=== PATIENT | male | born 1945 | race Caucasian/White ===

== ENCOUNTER 2017-06-18 15:29 | Inpatient (IN) | payer MEDICARE, BC ==
[~2017-06-18 15:29] MED LIST: ISOVUE-370 76%-LOCM 1 ML ONE
[2017-06-18] MEDS ORDERED: Ondansetron HCl/PF 4 MG/2 ML Vial ONE (16:17)
[2017-06-18] MEDS ORDERED: Morphine 4 MG/ML Carpuject ONE (16:17)
[2017-06-18 16:53] LABS: Clarity Cloudy (Clear)
[2017-06-18 17:07] LABS: RBC/HPF GREATER THAN 50-TNTC HPF (0-3)
[2017-06-18 17:08] LABS: Leukocyte Unable to Interpret (Negative); Nitrite Unable to Interpret (Negative); Specific Gravity, Urine 1.031 (1.002-1.036); pH, Urine 5.5 (5.0-9.0)
[2017-06-18 17:09] LABS: Bilirubin Unable to Interpret (Negative); Blood, Urine Unable to Interpret (Negative); Glucose, Urine (Dipstick) Unable to Interpret mg/dL (Negative); Protein, Urine (Dipstick) > or equal to 300 mg/dL (Neg-Trace); Urobilinogen UNABLE TO INTERPRET mg/dL (0.2-1.0)
[2017-06-18 17:10] LABS: Squamous Epithelial 0-3 HPF (0-3)
[2017-06-18 17:12] LABS: Bacteria/HPF Rare-Few HPF (None Seen); Hyaline Casts/LPF 0-3 HYALINE CAST LPF (0-3 Hyaline)
[2017-06-18 17:14] LABS: #Monocytes 0.9 thou/uL (0.11-0.59); #Neutrophils 13.7 thou/uL (1.40-6.50); %Basophils 0.3 % (0.0-1.0); %Eosinophils 0.3 % (0.0-10.0); %Lymphocytes 6.2 % (21.0-51.0); %Monocytes 5.8 % (0.0-10.0); %Neutrophils 87.5 % (42.0-75.0); Hemoglobin 12.8 g/dL (14.0-18.0); Mean Corpuscular Hemoglobin 30.4 pg (27.0-31.0); Mean Platelet Volume 9.9 fL (7.4-10.4); Platelet Count 159 thou/uL (130-400); RBC Distribution Width 12.6 % (11.5-14.5); Red Blood Cell (RBC) Count 4.23 mill/uL (4.70-6.10); White Blood Cell (WBC) Count 15.6 thou/uL (4.8-10.8)
[2017-06-18 17:26] LABS: INR-International Normal Ratio 1.1; PTT 23.5 SEC (22.9-36.1); Prothrombin Time 13.9 SEC (12.0-14.7)
[2017-06-18] MEDS ORDERED: Ondansetron ODT 4 MG TAB PO PRN (17:31)
[2017-06-18] MEDS ORDERED: Dextrose 50% Abboject 50 ML SYRINGE SLOW IVP PRN (17:31)
[2017-06-18] MEDS ORDERED: Dextrose 5% in Water 1,000 ML IV PRN (17:31)
--- NOTE | 2017-06-18 17:37 | CT ---
CT HEAD NONCONTRAST: 06/18/17 HISTORY: Fall. Head injury. FINDINGS: No comparison. There is no evidence of acute intracranial hemorrhage or infarct. The ventricles appear normal in siz e, shape, and position. There is no mass effect or shift of midline structures. The visualized paran amanda sinuses remain well aerated. IMPRESSION: No acute intracranial abnormalities are demonstrated. POS: [facility]
[2017-06-18 17:38] LABS: ALT (SGPT) 57 U/L (8-55); AST (SGOT) 54 U/L (5-34); Albumin 4.1 g/dL (3.4-4.8); Alkaline Phosphatase 55 U/L (40-150); Anion Gap 16 mmol/L (10-20); BUN (Urea Nitrogen) 24 mg/dL (8.4-25.7); Bilirubin, Total 0.5 mg/dL (0.2-1.2); Calc. Creatinine Clearance 0 mL/min (70-130); Calcium 9.3 mg/dL (7.8-10.44); Carbon Dioxide 23 mmol/L (23-31); Chloride 103 mmol/L (98-107); Estimated GFR-MDRD 57; Globulin 2.5 g/dL (2.4-3.5); Glucose 171 mg/dL (83-110); Potassium 4.4 mmol/L (3.5-5.1); Protein, Total 6.6 g/dL (5.8-8.1); Sodium 138 mmol/L (136-145)
--- NOTE | 2017-06-18 17:44 | CT ---
CT CERVICAL SPINE NONCONTRAST 06/18/17 HISTORY: Fall. Neck injury. FINDINGS: Prominent osteophytosis is present throughout the vertebral bodies and facets. Disc space narrowing i s most pronounced at the C5-6 level. No acute fracture or dislocation of the cervical spine is visibl e. The inferior most images show fracture of the right first rib with adjacent gas and minimal right api sonja pneumothorax. IMPRESSION: 1. Degenerative changes of the cervical spine without acute osseous abnormalities demonstrated. 2. Traumatic changes of the right upper chest are partially visualized and better detailed on de dicated CT chest. POS: [facility]
[2017-06-18] MEDS ORDERED: Rib Fracture Protocol PO SCH (17:45)
--- NOTE | 2017-06-18 17:50 | CT ---
CT CHEST WITH IV CONTRAST CT ABDOMEN AND PELVIS WITH IV CONTRAST CT THORACIC SPINE NONCONTRAST CT LUMBAR SPINE NONCONTRAST 06/18/17 HISTORY: Fall. Chest injury. Abdomen injury, back injury. FINDINGS: A small amount of soft tissue gas lies adjacent to nondisplaced fractures of the right first and thir d ribs. Nondisplaced fractures also involve the right fourth, fifth, sixth, seventh and ninth ribs. T here is minimal pleural gas and a small amount of right pleural fluid. Nondisplaced oblique fracture is predominantly axially oriented through the right scapula, extending into the right glenoid without distraction. The liver, spleen, kidneys, adrenal glands, and pancreas are within normal limits. The urinary bladde r is incompletely distended. Calcifications apparent within the arterial structures. Vertebral body heights and alignment of the thoracolumbar spine are intact. Prominent osteophytosis i s present. No acute fracture or dislocation. IMPRESSION: 1. Multiple right rib fractures with right chest wall gas. Small right hemopneumothorax. 2. Atherosclerosis. 3. Right scapular fracture extending into the right glenoid. Findings were called to Dr. Sequeira in the Emergency Department at 1642 hours. Code CR POS: [facility]
[2017-06-18] MEDS ORDERED: Cyclobenzaprine 10 MG TAB PO PRN (18:15)
--- NOTE | 2017-06-18 18:50 | RAD ---
RIGHT SHOULDER RADIOGRAPHS THREE VIEWS 06/18/17 PROVIDED CLINICAL HISTORY: Right shoulder pain status post injury. FINDINGS: There is a nondisplaced fracture involving the right scapular glenoid which appears to involve the ar ticular surface of the anterior aspect of the glenoid superiorly. This is better seen on concurrently performed chest CT. The glenohumeral relationship appears normal. No additional fracture is evident. Soft tissue gas parallels the right chest wall, please see concurrently [facility] finding. IMPRESSION: 1. Nondisplaced intra-articular scapular glenoid fracture. 2. Soft tissue gas within the right chest wall. Please see concurrently dictated chest CT report . POS: [facility]
--- NOTE | 2017-06-18 18:52 | RAD ---
LEFT KNEE RADIOGRAPHS FOUR VIEWS: 06/18/17 PROVIDED CLINICAL HISTORY: Left knee pain status post injury. FINDINGS: There is no evidence for fracture or other acute osseous abnormality. Alignment appears anatomic. Franci nt spaces appear preserved. Knee joint capsular distention is suspected on the basis of the lateral v iew which may reflect effusion. Surgical clips are seen within the soft tissues of the medial left kn ee. IMPRESSION: 1. No evidence for an acute osseous abnormality. If there is persistent clinical concern, conser vative management and followup imaging are advised. 2. Knee joint capsular distention which may reflect effusion. If there is concern for internal d erangement, consider nonemergent MRI. POS: [facility]
[2017-06-18] MEDS: Carvedilol 6.25 MG TAB PO SCH (20:25)
[2017-06-18] MEDS: Gabapentin 100 MG CAP PO SCH (20:26)
[2017-06-18] MEDS: Insulin Regular 300 UNITS/3 ML VIAL SC PRN (20:27)
[2017-06-18] MEDS ORDERED: Zolpidem Tartrate 5 MG TAB PO SCH (21:00)
[2017-06-18] MEDS ORDERED: Rosuvastatin 20 MG TAB PO SCH (21:00)
[2017-06-18] MEDS ORDERED: Non-Formulary Item 1 EACH (Insulin Glargine,Hum.Rec.Anlog 40 UNIT) SQ SCH (21:00)
[2017-06-18] MEDS ORDERED: Insulin Detemir 100 UNITS/ML 40 UNITS in Pre-Filled Syringe 1 EACH SC SCH (21:00)
--- NOTE | 2017-06-18 23:29 | HP ---
DATE OF ADMISSION: 06/18/2017 REQUESTING PHYSICIAN: Dr. Sequeira, ED. ADMITTING PHYSICIAN: Dr. Oscar Rogers. CONSULTING PHYSICIAN: Dr. Stan Argueta, Orthopedics. HISTORY OF PRESENT ILLNESS: The patient is a 71-year-old male who was standing on a stack of hay when he fell off approximately 8 feet, landing on his right shoulder and right side. 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 He then was concerned because he noticed that he had hematuria and that prompted him to seek treatment in the ED. He remained hemodynamically stable and neurologically intact during evaluation. Workup identified multiple right- sided rib fractures and slight pneumothorax as well as right scapular fracture. Trauma Services was consulted for admission and management. Dr. Argueta has been consulted for scapular fracture. The patient describes the pain as in the right chest wall. Pain is exacerbated by deep inspiration. Pain was relieved with administration of morphine. PAST MEDICAL HISTORY: Cardiac disease, hypothyroidism, hyperlipidemia, hypertension. PAST SURGICAL HISTORY: Coronary artery bypass graft x4 in 2009, coronary artery stent x2 in 2009, bilateral quadriceps repair, orthopedic surgeries. SOCIAL HISTORY: Denies tobacco use, drug use, alcohol use. ALLERGIES: No known drug allergies. REVIEW OF SYSTEMS: Constitutional: Denies weight loss, fatigue or generalized weakness. HEENT: No complaints. No vision changes, no hearing changes. Cardiovascular: Right chest wall pain with deep inspiration or movement. No palpitations. Respiratory: No shortness of breath. No cough. Gastrointestinal: No abdominal pain, no nausea, no vomiting, no diarrhea. Genitourinary: The patient reports hematuria. Musculoskeletal: Right shoulder pain, left knee pain. Skin: No complaints. Neurologic: No focal weakness, no loss of consciousness, no seizure activity. PHYSICAL EXAMINATION: VITAL SIGNS: Blood pressure 131/68, pulse 57, respirations 18, temperature 97.9 , O2 sat 96% on room air. CONSTITUTIONAL: Well-developed, well-nourished male, in no acute distress. HEENT: Atraumatic, normocephalic. RESPIRATIONS: Obvious pain with deep inspiration. No respiratory distress. Bilateral breath sounds. Clear to auscultation. CARDIOVASCULAR: Regular rate and rhythm. Heart sounds normal. ABDOMEN: Soft, nontender, nondistended. EXTREMITIES: Moves all extremities well. Cap refill brisk. Neurovascularly intact. BACK: No cervical spine, thoracic spine or lumbar spine tenderness. NEUROLOGIC: GCS 15. Awake, alert, and oriented x3. SKIN: Warm and dry. No rashes, no trauma noted. LABORATORY DATA: CBC: WBC 15.6, RBC 4.23, hemoglobin 12.8, hematocrit 38.9, platelets 159. Chemistry: Sodium 138, potassium 4.4, chloride 103, carbon dioxide 23, BUN 24, creatinine 1.24. DIAGNOSTIC IMAGING: Right rib fractures 1, 3, 4, 5, 6, 7, 9. Right scapular fracture into the glenoid. A small right hemopneumothorax. ASSESSMENT: 1. A 71-year-old male status post fall from height of about 8 feet. 2. Multiple right rib fractures. 3. Right scapular fracture. 4. Small right hemopneumothorax. 5. Acute traumatic pain. 6. Hematuria. PLAN: 1. Admit to surgical floor. 2. Oral scheduled analgesia. 3. Orthopedic consult, Dr. Argueta. 4. A sling for right arm. 5. Aggressive pulmonary toilet and incentive spirometry. 6. Chest x-ray in a.m. 7. Monitor H&H. 8. PT, OT evaluation. The patient was seen and examined with Dr. Rogers, who agrees with the assessment and plan. [facility]
[2017-06-18] MEDS: Acetaminophen 500 MG TAB PO SCH (23:38)
[2017-06-18] MEDS: Ibuprofen 600 MG TAB PO SCH (23:38)
[2017-06-18] MEDS: traMADol HCl 50 MG TAB PO SCH (23:38)
[2017-06-19 04:35] LABS: Anion Gap 11 mmol/L (10-20); BUN (Urea Nitrogen) 24 mg/dL (8.4-25.7); Calc. Creatinine Clearance 111 mL/min (70-130); Calcium 8.9 mg/dL (7.8-10.44); Carbon Dioxide 26 mmol/L (23-31); Chloride 102 mmol/L (98-107); Estimated GFR-MDRD 75; Glucose 224 mg/dL (83-110); Sodium 135 mmol/L (136-145)
[2017-06-19] MEDS ORDERED: Levothyroxine Sodium 75 MCG TAB PO SCH (06:00)
[2017-06-19] MEDS: traMADol HCl 50 MG TAB PO SCH ×2 (06:35→11:58)
[2017-06-19] MEDS: Ibuprofen 600 MG TAB PO SCH ×2 (06:36→11:58)
[2017-06-19] MEDS: Acetaminophen 500 MG TAB PO SCH ×2 (06:37→11:58)
[2017-06-19] MEDS: Insulin Regular 300 UNITS/3 ML VIAL SC PRN ×2 (06:49→11:57)
[2017-06-19] MEDS: Gabapentin 100 MG CAP PO SCH ×2 (07:48→16:18)
[2017-06-19] MEDS: Carvedilol 6.25 MG TAB PO SCH (07:49)
--- NOTE | 2017-06-19 08:23 | RAD ---
UPRIGHT PORTABLE CHEST 1 VIEW: HISTORY: A 71-year-old male followup right-sided pneumothorax in a trauma patient. COMPARISON: 06/18/17. FINDINGS: There is a small amount of persistent but overall improving right-sided subcutaneous emphysema. Prob able tiny residual right apical pneumothorax. Postop midline sternotomy. Mild cardiomegaly. Left c hest is stable. IMPRESSION: Probable very tiny right apical pneumothorax. Some persistent but improving right subcutaneous emphy sema. Mild cardiomegaly. Overall stable left chest. No new process. POS: [facility]
[2017-06-19] MEDS ORDERED: NIFEdipine XL 90 MG TAB PO SCH (09:00)
[2017-06-19] MEDS ORDERED: Polyethylene Glycol 3350 17 GM Packet PO SCH (09:00)
[2017-06-19] MEDS ORDERED: Multivitamin W/ Minerals 1 TAB PO SCH (09:00)
[2017-06-19] MEDS ORDERED: Lisinopril 20 MG TAB PO SCH (09:00)
[2017-06-19 15:42] VITALS: BP 106/58; TEMP 98
--- NOTE | 2017-06-20 00:59 | DIS ---
DATE OF ADMISSION: 06/18/2017 DATE OF DISCHARGE: 06/19/2017 ADMITTING PHYSICIAN: Oscar Rogers DO DISCHARGING PHYSICIAN: Oscar Rogers DO REASON FOR HOSPITALIZATION: Fall from a height with right rib pain. HOSPITAL DIAGNOSES: 1. Multiple right rib fractures. 2. Small right hemopneumothorax. 3. Right scapular fracture. PROCEDURES: None. CONDITION ON DISCHARGE: Good. Discharged to home. BRIEF HISTORY OF HOSPITALIZATION: The patient is a 71-year-old male who was loading some hay when he fell from the top of the stack of hay landing on his right side. 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 He noticed that he was having some hematuria which prompted him to seek treatment in the ER. Workup in the ER identified multiple injuries as listed above. He remained hemodynamically stable and neurovascular intact during evaluation. He was evaluated in the ER by Dr. Rogers and admitted to the hospital. Strict pulmonary toilet and incentive spirometer were instructed. On hospital day #1, the patient was mobilizing around the surgical floor without assistance. He was compliant with his incentive spirometry and had volumes up to 2200 mL. Repeat chest x-ray showed a probable very tiny right apical pneumothorax. His pain was well controlled. Dr. Argueta was consulted for scapular fracture and recommended the patient be placed in a sling with nonoperative treatment. The patient did not work with physical therapy as he had no issues with mobility. He was tolerating a regular diet. The patient is to be discharged to home. He is to follow up with Dr. Rogers with repeat chest x-ray in 2 weeks. He is also to follow up with Dr. Argueta. The patient and were given discharge instructions, followup information, and strict return precautions. The patient was seen and examined with Dr. Rogers who agrees with the assessment and plan for discharge. [facility]
== END 2017-06-19 16:28 | disposition home or self-care (01) | DRG 183 ==
LOC: ERS 15:29 → SURG A 18:48
PROVIDERS: ADMIT Surgery; ATTEND Surgery
DX: S22.41XA Multiple fractures of ribs, right side, initial encounter for closed fracture (principal); S27.2XXA Traumatic hemopneumothorax, initial encounter; R31.9 Hematuria, unspecified; E03.9 Hypothyroidism, unspecified; S42.141A Displaced fracture of glenoid cavity of scapula, right shoulder, initial encounter for closed fracture; E78.5 Hyperlipidemia, unspecified; Z95.1 Presence of aortocoronary bypass graft; Z95.5 Presence of coronary angioplasty implant and graft; W17.89XA Other fall from one level to another, initial encounter
CPT/HCPCS: 36415; 36416; 70450; 71045; 71260; 72125; 74177; 80048; 80053; 81003; 81015; 85025; 85610; 85730; 94640; J1815; J2270; J2405; J7620

== ENCOUNTER 2017-07-02 09:52 | Outpatient (CLI) | payer MEDICARE, BC ==
--- NOTE | 2017-07-02 11:04 | RAD ---
CHEST PA AND LATERAL: Date: 07/02/17 HISTORY: 71-year-old male with history of multiple right rib fractures and follow-up pneumothorax. COMPARISON: 06/19/17. FINDINGS: No evidence for residual right-sided pneumothorax. There is some progressive pleural effusion/pleural thickening changes in the right chest and right costophrenic angle and right lung base since the cindy or study. The left chest is stable. Heart size is normal. IMPRESSION: No evidence for residual pneumothorax. Some progressive pleural changes in the right base. POS: [facility]
== END 2017-07-02 09:53 | disposition home or self-care (01) ==
LOC: RAD 09:52
PROVIDERS: ATTEND Physician Assistant
DX: S22.41XD Multiple fractures of ribs, right side, subsequent encounter for fracture with routine healing (principal); J94.2 Hemothorax
CPT/HCPCS: 71046

== ENCOUNTER 2019-05-10 00:22 | Inpatient (IN) | payer MEDICARE, BC ==
[2019-05-10] MEDS ORDERED: Clindamycin/D5W 600 mg/50 ml Premix Bag ONE (01:09)
[2019-05-10 01:43] LABS: #Basophils 0.1 thou/uL (0.0-0.2); #Eosinphils 0.4 thou/uL (0.0-0.7); #Monocytes 0.7 thou/uL (0.11-0.59); #Neutrophils 5.9 thou/uL (1.40-6.50); %Basophils 0.9 % (0.0-1.0); %Lymphocytes 22.5 % (21.0-51.0); %Monocytes 7.2 % (0.0-10.0); %Neutrophils 65.4 % (42.0-75.0); Hemoglobin 13.3 g/dL (14.0-18.0); Mean Corpuscular HGB CONC 33.2 g/dL (32.0-36.0); Mean Corpuscular Hemoglobin 30.9 pg (27.0-31.0); Mean Corpuscular Volume 93.2 fL (78.0-98.0); Mean Platelet Volume 10.8 fL (7.4-10.4); Platelet Count 154 thou/uL (130-400); RBC Distribution Width 11.8 % (11.5-14.5); Red Blood Cell (RBC) Count 4.29 mill/uL (4.70-6.10)
[2019-05-10 02:02] LABS: ALT (SGPT) 18 U/L (8-55); AST (SGOT) 15 U/L (5-34); Albumin 4.3 g/dL (3.4-4.8); Alkaline Phosphatase 72 U/L (40-110); Anion Gap 14 mmol/L (10-20); BUN (Urea Nitrogen) 20 mg/dL (8.4-25.7); Bilirubin, Total 0.7 mg/dL (0.2-1.2); Calc. Creatinine Clearance 0 mL/min (70-130); Calcium 9.6 mg/dL (7.8-10.44); Carbon Dioxide 28 mmol/L (23-31); Chloride 103 mmol/L (98-107); Estimated GFR-MDRD 74; Globulin 2.9 g/dL (2.4-3.5); Glucose 109 mg/dL (83-110); Potassium 4.4 mmol/L (3.5-5.1); Protein, Total 7.2 g/dL (5.8-8.1); Sodium 141 mmol/L (136-145)
[2019-05-10] MEDS ORDERED: Dextrose 5% in Water 1,000 ML IV PRN (03:21)
[2019-05-10] MEDS ORDERED: Senokot S 8.6-50 MG TAB PO PRN (03:21)
[2019-05-10] MEDS ORDERED: Ondansetron PF 4 MG/2 ML Vial IVP PRN (03:21)
[2019-05-10] MEDS ORDERED: Bisacodyl 5 MG TAB PO PRN (03:21)
[2019-05-10] MEDS ORDERED: HumaLOG 300 UNITS/3 ML VIAL SC PRN (03:21)
[2019-05-10] MEDS ORDERED: Dextrose 50% Abboject 50 ML SYRINGE SLOW IVP PRN (03:21)
[2019-05-10] MEDS ORDERED: Acetaminophen 325 MG TAB PO PRN (03:21)
[2019-05-10] MEDS ORDERED: HYDROcodone/Acetaminophen 5/325 mg Tablet PO PRN (03:21)
[2019-05-10] MEDS ORDERED: Morphine 2 MG/ML SYRINGE SLOW IVP PRN (03:27)
[2019-05-10] MEDS ORDERED: hydrALAZINE 20 MG/ML VIAL SLOW IVP PRN (03:27)
[2019-05-10] MEDS ORDERED: Vancomycin HCl 1 GM in Premix Bag 1 BAG IVPB SCH (03:30)
[2019-05-10 03:50] VITALS: BMI 30.2
[2019-05-10 04:03] LABS: #Basophils 0.1 thou/uL (0.0-0.2); #Eosinphils 0.5 thou/uL (0.0-0.7); #Lymphocytes 2.4 thou/uL (1.20-3.40); #Monocytes 0.7 thou/uL (0.11-0.59); #Neutrophils 5.8 thou/uL (1.40-6.50); %Basophils 0.7 % (0.0-1.0); %Eosinophils 4.9 % (0.0-10.0); %Lymphocytes 25.2 % (21.0-51.0); %Monocytes 7.2 % (0.0-10.0); Hemoglobin 13.5 g/dL (14.0-18.0); Mean Corpuscular HGB CONC 33.5 g/dL (32.0-36.0); Mean Corpuscular Hemoglobin 31.2 pg (27.0-31.0); Mean Corpuscular Volume 93.1 fL (78.0-98.0); Mean Platelet Volume 10.5 fL (7.4-10.4); Platelet Count 164 thou/uL (130-400); RBC Distribution Width 11.8 % (11.5-14.5); Red Blood Cell (RBC) Count 4.33 mill/uL (4.70-6.10); White Blood Cell (WBC) Count 9.4 thou/uL (4.8-10.8)
--- NOTE | 2019-05-10 04:17 | HP ---
PRESENTING COMPLAINT: Left 4th digit redness and swelling. HISTORY OF PRESENT ILLNESS: Mr. Chong Mason is a 73-year-old male with past medical history of hypertension, diabetes, coronary artery disease, status post CABG, with subsequent PCIs, hypothyroidism, who presented because of new-onset redness and swelling in the left lower extremity third toe. The patient states symptoms had been ongoing since the last 1 week. He states he sustained trauma by playing dodgeball. The abrasion and callus continued to worsen and became more red and swollen. He denies any fever or chills. He denies any nausea or vomiting or headache. In the emergency room, the callus head was removed and blood culture obtained. The patient admits to intermittent pain in the area, but currently denies any pain symptoms. He admits to mild swelling of both lower extremity prior to onset of redness of the toes. PAST MEDICAL HISTORY: Significant for hypothyroidism; hyperlipidemia; hypertension; coronary artery disease; history of diabetes mellitus; and history of obstructive sleep apnea, uses CPAP at night. PAST SURGICAL HISTORY: Include history of bilateral quadriceps repair, history of CABG x4 grafts in 2009 and history of PCI. FAMILY HISTORY: History of hypertension and coronary artery disease. SOCIAL HISTORY: The patient is a lifelong nonsmoker. No history of alcohol or illicit drug use. He resides in the community with his spouse. He is fully functional at baseline. ALLERGIES: NO KNOWN DRUG ALLERGIES. HOME MEDICATIONS: Include, see MAR. Of note, the patient states his Coreg was recently reduced from 6.25 to 3.125 b.i.d. REVIEW OF SYSTEMS: All systems reviewed x14 were negative except as mentioned above. PHYSICAL EXAMINATION: VITAL SIGNS: Blood pressure 154/56, pulse of 69, respiratory rate of 18, and O2 saturation 100% on room air. GENERAL: Average-built elderly male, lying in bed, not in any distress. Pleasant. HEENT: Head is atraumatic, normocephalic. Pupils are equal and reactive to light. [place] conjunctivae. NECK: No JVD. No carotid bruit. RESPIRATORY: Good air entry. No crepitations. CARDIOVASCULAR: S1 and S2. Sternotomy scar noted. ABDOMEN: Full, soft, and nontender. Bowel sounds positive. No CVA tenderness. No suprapubic fullness. RECTAL: Deferred. MUSCULOSKELETAL: 1+ pedal edema of bilateral lower extremities, slightly increased on the left lower extremity. Erythema with mild tenderness over the left foot third toe digit. Erythema extended over whole area of the toe, notable desquamation of skin with ulceration over the tip of the toe. Small bloody oozing when compress the ulcer margin. Dorsalis pedis palpation was symmetrical bilaterally. NEUROLOGIC: The patient is alert and oriented. Cranial nerves II through XII are grossly intact. LABORATORY DATA: Foot x-ray shows no acute fracture. WBC 9.0, hemoglobin 13, platelet 154, neutrophils 65%. ESR of 10. Potassium 4.4, creatinine 0.9, glucose of 109, and calcium of 9.6. C-reactive protein elevated at 1.7. AST and alkaline phosphatase normal. IMPRESSION: 1. Left foot third digit cellulitis, rule out possible osteomyelitis. 2. Hypertension. 3. Diabetes mellitus. 4. History of coronary artery disease. PLAN: We admit the patient to inpatient status. We will manage the patient for the following; 1. Left foot cellulitis - mainly affecting the third digit, given erythematous and edematous pattern, suspicion for underlying gouty arthritis suspected. We will obtain uric acid level. We will also obtain bone scan to rule out osteomyelitis despite low ESR. We will start the patient on empirical antibiotics with vancomycin and Levaquin. We will consult pharmacy to dose vancomycin. Follow trough regularly. We do continue pain medications. 2. Hypertension, relatively controlled. Continue home regimen. Mild fluid overload may be contributing to mild elevated BP. We add Lasix. 3. Fluid overload with bilateral lower extremity edema. We will start low-dose Lasix 40 mg b.i.d. Follow potassium level. 4. Diabetes mellitus. Continue Lantus insulin with insulin sliding scale and Accu-Cheks. 5. Coronary artery disease, stable. Continue home regimen. 6. Advanced directive discussed with the patient and spouse. The patient wishes to be full code. 7. Disposition, possible hospital stay for more than 2 days. Total time spent in review of record, discussion with the patient, greater than 60 minutes. Job ID: [id number]
[2019-05-10 04:25] LABS: Anion Gap 11 mmol/L (10-20); BUN (Urea Nitrogen) 19 mg/dL (8.4-25.7); Calc. Creatinine Clearance 95 mL/min (70-130); Calcium 9.4 mg/dL (7.8-10.44); Carbon Dioxide 28 mmol/L (23-31); Chloride 103 mmol/L (98-107); Estimated GFR-MDRD 70; Glucose 135 mg/dL (83-110); Potassium 4.3 mmol/L (3.5-5.1); Sodium 138 mmol/L (136-145); Uric Acid 4.7 mg/dL (3.5-7.2)
[2019-05-10] MEDS: Vancomycin 1.5 GRAM/300 ML BAG 1.5 GM in Premix Bag 1 BAG IVPB SCH ×2 (05:54→16:44)
[2019-05-10] MEDS: Levothyroxine Sodium 50 MCG TAB PO SCH (05:54)
--- NOTE | 2019-05-10 07:51 | RAD ---
Exam:3 views left foot HISTORY: Diabetes. Third digit swelling and erythema. COMPARISON: None FINDINGS: There is soft tissue swelling involving the third digit, extending into the midfoot. No rad iographic evidence of osteomyelitis. Joint spaces are preserved. No fracture. Minimal atherosclerosis. Lisfranc alignment is maintained. Degenerative changes in the midfoot. Hypertrophic changes of the calcaneus are noted. IMPRESSION: Soft tissue swelling, compatible with cellulitis. No radiographic evidence of osteomyelit is.
[2019-05-10] MEDS: Rosuvastatin 20 MG TAB PO SCH (09:04)
[2019-05-10] MEDS: Lisinopril 20 MG TAB PO SCH (09:04)
[2019-05-10] MEDS: NIFEdipine XL 90 MG TAB PO SCH (09:04)
[2019-05-10] MEDS: Aspirin 325 MG TAB PO SCH (09:04)
[2019-05-10] MEDS: Clopidogrel Bisulfate 75 MG TAB PO SCH (09:04)
[2019-05-10] MEDS: Furosemide 20 MG TAB PO SCH ×2 (09:04→14:42)
[2019-05-10] MEDS: Isosorbide Mononitrate (ER) 30 MG TAB PO SCH (09:04)
[2019-05-10] MEDS: Carvedilol 3.125 MG TAB PO SCH ×2 (09:05→16:42)
[2019-05-10] MEDS: metFORMIN 500 MG TAB PO SCH ×2 (09:05→16:42)
[2019-05-10] MEDS: Famotidine 20 MG TAB PO SCH ×2 (09:05→20:21)
[2019-05-10] MEDS: Enoxaparin Sodium 40 MG/0.4 ML SYRINGE SC SCH (09:05)
--- NOTE | 2019-05-10 13:51 | PDOC.HOSPP ---
- Subjective Encounter Date: 05/10/19 Encounter Time: 13:50 Subjective: Ms. Mason was seen today in follow-up of diabetic foot infection. He is post debridement. - Objective Vital Signs & Weight: Vital Signs (12 hours) Temp Pulse Resp BP Pulse Ox 05/10/19 13:29 98.0 F 58 L 16 116/56 L 98 05/10/19 09:04 53 L 05/10/19 07:21 97.7 F 53 L 16 125/59 L 98 05/10/19 03:50 97.9 F 58 L 16 137/65 97 Weight Weight 235 lb 3 oz Result Diagrams: 05/10/19 03:57 05/10/19 03:57 Additional Labs: Accuchecks 05/10/19 05/10/19 12:20 00:58 POC Glucose 98 105 Hospitalist ROS - Medication Medications: Active Medications Generic Name Dose Route Start Last Admin Trade Name Freq PRN Reason Stop Dose Admin Aspirin 325 mg 05/10/19 09:00 05/10/19 09:04 Aspirin PO 325 mg DAILY SEAN Administration Carvedilol 3.125 mg 05/10/19 08:00 05/10/19 09:05 Coreg PO 3.125 mg BID-WM SEAN Administration Clopidogrel Bisulfate 75 mg 05/10/19 09:00 05/10/19 09:04 Plavix PO 75 mg DAILY SEAN Administration Enoxaparin Sodium 40 mg 05/10/19 09:00 05/10/19 09:05 Lovenox SC 40 mg 0900 SEAN Administration Famotidine 20 mg 05/10/19 09:00 05/10/19 09:05 Pepcid PO 20 mg BID SEAN Administration Furosemide 40 mg 05/10/19 09:00 05/10/19 09:04 Lasix PO 40 mg 0900,1400 SEAN Administration Vancomycin HCl 1.5 gm/ Device 300 mls @ 200 mls/hr 05/10/19 05:00 05/10/19 05 :54 IVPB 300 mls 0500,1700 SEAN Administration Isosorbide Mononitrate 30 mg 05/10/19 09:00 05/10/19 09:04 Imdur Er PO 30 mg DAILY SEAN Administration Levofloxacin 750 mg 05/10/19 06:00 05/10/19 05:54 Levaquin PO 750 mg 0600 SEAN Administration Levothyroxine Sodium 50 mcg 05/10/19 06:00 05/10/19 05:54 Synthroid PO 50 mcg 0600 SEAN Administration Lisinopril 40 mg 05/10/19 09:00 05/10/19 09:04 Zestril PO 40 mg DAILY SEAN Administration Metformin HCl 1,000 mg 05/10/19 08:00 05/10/19 09:05 Glucophage PO 1,000 mg BID-WM SEAN Administration Nifedipine 90 mg 05/10/19 09:00 05/10/19 09:04 Procardia Xl PO 90 mg DAILY SEAN Administration Ranolazine 500 mg 05/10/19 09:00 05/10/19 09:04 Ranexa PO 500 mg BID SEAN Administration Rosuvastatin Calcium 40 mg 05/10/19 09:00 05/10/19 09:04 Crestor PO 40 mg DAILY SEAN Administration - Exam Eye: PERRL Heart: RRR, no murmur, no gallops, no rubs, normal peripheral pulses Respiratory: CTAB, no wheezes, no rales, no ronchi, normal chest expansion Gastrointestinal: soft, non-tender, non-distended, normal bowel sounds Extremities: no cyanosis, no clubbing, 1+ LE edema Skin: normal turgor Hosp A/P (1) Diabetic infection of left foot Code(s): E11.628 - TYPE 2 DIABETES MELLITUS WITH OTHER SKIN COMPLICATIONS; L08.9 - LOCAL INFECTION OF THE SKIN AND SUBCUTANEOUS TISSUE, UNSP Status: Acute (2) Coronary artery disease Code(s): I25.10 - ATHSCL HEART DISEASE OF [place] CORONARY ARTERY W/O ANG PCTRS Status: Chronic Qualifiers: Coronary Disease-Associated Artery/Lesion type: bypass graft (3) Diabetes mellitus Code(s): E11.9 - TYPE 2 DIABETES MELLITUS WITHOUT COMPLICATIONS Status: Chronic Qualifiers: Diabetes mellitus type: type 2 Diabetes mellitus complication status: with unspecified complications (4) Hypertension Code(s): I10 - ESSENTIAL (PRIMARY) HYPERTENSION Status: Chronic Qualifiers: Hypertension type: essential hypertension Qualified Code(s): I10 - Essential (primary) hypertension - Plan * Diabetic foot infection- 4th toe, left foot- continue IV antibiotics * Continue Vancomycin and Levaquin * The area has been debrided * Await Bone scan results * HTN- blood pressure is stable * DM- blood glucose is stable
[2019-05-10] MEDS ORDERED: Heparin 1,000 UNITS/ML VIAL ONE (14:56)
--- NOTE | 2019-05-10 16:15 | NM ---
WHOLE BODY BONE SCAN WITH TWO PHASE IMAGING THROUGH THE FEET: 05/10/19 HISTORY: 73-year-old male with left foot third digit ulcer. RADIOPHARMACEUTICAL: 27 millicuries technetium 99m-MDP injected intravenously. FINDINGS: Correlation is made with the foot radiograph from the same date. There is increased flow to the left foot compared to the right with increased blood pooling. Delayed images demonstrate focally increased uptake in the region of the third digit of the left foot. Delayed whole body images demonstrate increased uptake in the right foot, bilateral knees, shoulders, elbows, wrists and hands consistent with degenerative changes. There is a focus of increased uptake in the left maxilla consistent with periodontal disease. Tracer excretion through the kidneys is within normal limits. IMPRESSION: Findings are suspicious for osteomyelitis involving the third digit of the left foot. POS: [facility]
[2019-05-10] MEDS ORDERED: FLU VACC TS2019-20(65YR UP)/PF 180 MCG/0.5 ML SYRINGE IM ONE (21:00)
[2019-05-10] MEDS ORDERED: Prevnar 13-Val Conj/PF 0.5 ML SYRINGE IM ONE (21:00)
--- NOTE | 2019-05-10 23:26 | CON ---
DATE OF CONSULTATION: HISTORY OF PRESENT ILLNESS: Chong Mason is a 73-year-old male, diabetic, who was playing pickleball and irritated his left third toe, developing callus there previously and his third toe has become cellulitic. He presented to the emergency room. X-rays obtained revealed cellulitis and soft tissue changes, but no bony involvement. Bone scan has been ordered, but pending. This process has been ongoing 2 to 3 weeks. I doubt he has osteomyelitis. At the bedside, I did debride the callus at the end of the toe and there was probably 4 to 5 mm area of superficial excoriation. There are no deep sinus tracts. I think antibiotics alone along with local wound care, wash the wound daily with soap and water in the bath or shower, applying antibiotic ointment and a Band-Aid will suffice. Surgical involvement at this time is not further needed. I would recommend he be discharged home on oral antibiotics tomorrow and follow up in my office as an outpatient in 2 to 3 weeks. He should continue wound care as outlined. ALLERGIES: NONE. SOCIAL HISTORY: Tobacco, none. Alcohol, none. MEDICATIONS: 1. Insulin 40 units subcu. 2. CoQ10. 3. Turmeric. 4. Renax. 5. Vitamin A. 6. Copper. 7. Crestor. 8. Theragran. 9. B12 vitamin. 10. Plavix 75 mg a day. 11. Metformin 1000 mg b.i.d. 12. Zolpidem 10 mg at bedtime. 13. Carvedilol 40 mg daily. 14. Lisinopril 40 mg daily. 15. Levothyroxine 50 mcg daily. 16. Aspirin 81 mg a day. PAST MEDICAL HISTORY: Diabetes mellitus, hypertension, mild obesity, hypothyroidism, hyperlipidemia, hypertension, coronary artery disease, history of sleep apnea, uses CPAP at night. PAST SURGICAL HISTORY: Bilateral quadriceps repair, history of coronary artery bypass grafting, 4 grafts in 2010; history of PCI with stent intervention postoperatively as one of his grafts occluded. SOCIAL HISTORY: The patient is . He is independently ambulatory. PHYSICAL EXAMINATION: VITAL SIGNS: 6 feet 2 inches, 235 pounds, 30 of BMI, 98 degrees, heart rate 58, and blood pressure 116/56. HEAD, EARS, EYES, NOSE, AND THROAT: Unremarkable. LUNGS: Clear to auscultation. COR: Regular rate and rhythm without murmur or gallop. ABDOMEN: Soft and nontender. EXTREMITIES: Palpable femoral, popliteal, dorsalis pedis, and posterior tibial pulses. Evidence of chronic venous stasis disease with hyperpigmentation and stasis dermatitis, otherwise lower extremities are unremarkable. No edema. Well-healed sternotomy scar. Left third toe reveals cellulitis involving the toe only. There is callus at the end in the long toenail. At the bedside, alcohol prep was used. This was debrided sharply. There was no underlying pus. ASSESSMENT AND PLAN: Diabetic foot infection, left. X-rays are negative for osteomyelitis. I think the patient could be discharged home on oral antibiotics. He should wash the wound daily with soap and water, apply antibiotic ointment and Band-Aid. He can follow up in my office in 2 to 3 weeks. I will see him as needed this hospitalization. No further surgical intervention is necessary at this time. Job ID: [id number]
[2019-05-11] MEDS: Levothyroxine Sodium 50 MCG TAB PO SCH (05:45)
[2019-05-11] MEDS: Vancomycin 1.5 GRAM/300 ML BAG 1.5 GM in Premix Bag 1 BAG IVPB SCH ×2 (05:45→16:13)
[2019-05-11] MEDS: NIFEdipine XL 90 MG TAB PO SCH (08:06)
[2019-05-11] MEDS: Rosuvastatin 20 MG TAB PO SCH (08:07)
[2019-05-11] MEDS: metFORMIN 500 MG TAB PO SCH ×2 (08:08→16:13)
[2019-05-11] MEDS: Isosorbide Mononitrate (ER) 30 MG TAB PO SCH (08:08)
[2019-05-11] MEDS: Aspirin 325 MG TAB PO SCH (08:08)
[2019-05-11] MEDS: Carvedilol 3.125 MG TAB PO SCH ×2 (08:09→16:13)
[2019-05-11] MEDS: Furosemide 20 MG TAB PO SCH ×2 (08:09→15:14)
[2019-05-11] MEDS: Lisinopril 20 MG TAB PO SCH (08:12)
[2019-05-11] MEDS: Clopidogrel Bisulfate 75 MG TAB PO SCH (08:14)
[2019-05-11] MEDS: Famotidine 20 MG TAB PO SCH ×2 (08:15→19:52)
--- NOTE | 2019-05-11 08:17 | OP ---
DATE OF PROCEDURE: 05/10/2019 PREOPERATIVE DIAGNOSIS: Diabetic infection left third toe with callus on the tip. POSTOPERATIVE DIAGNOSIS: Diabetic infection left third toe with callus on the tip. PROCEDURES: Sharp excisional resectional debridement, 10 blade scalpel resectional excisional skin and callus leaving a 4 mm excoriated wound without deep sinus tract. No evidence of deeper infection. No further surgical intervention needed. ANESTHESIA: None. DESCRIPTION OF PROCEDURE: With the patient at bedside in his room, his left third toe was cellulitic and edematous. There was callus at the tip. This was debrided sharply after an alcohol prep, unroofing the blister and unroofing the intact skin otherwise except for a 4 mm area with granulation tissue. There were no deep sinus tracts. ASSESSMENT AND PLAN: At this point, antibiotic ointment and Band-Aid applied. I would recommend washing it daily with soap and water in the bath or shower, and applying antibiotic ointment and Band-Aid. Follow up in my office in 2 to 3 weeks. I will see him as needed this hospitalization. Job ID: [id number]
[2019-05-11] MEDS: Enoxaparin Sodium 40 MG/0.4 ML SYRINGE SC SCH (08:20)
--- NOTE | 2019-05-11 14:25 | PDOC.HOSPP ---
- Subjective Encounter Date: 05/11/19 Encounter Time: 14:24 Subjective: Mr. Mason was seen today in follow-up of diabetic foot infection. He does not have any complaints. - Objective Vital Signs & Weight: Vital Signs (12 hours) Temp Pulse Resp BP Pulse Ox 05/11/19 08:06 59 L 05/11/19 08:00 97.6 F 59 L 16 161/73 H 99 Weight Admit Weight 235 lb 3 oz Weight 235 lb 3 oz I&O: 05/10/19 05/11/19 05/12/19 06:59 06:59 06:59 Intake Total 1000 Balance 1000 Result Diagrams: 05/10/19 03:57 05/10/19 03:57 Additional Labs: Accuchecks 05/11/19 05/11/19 05/10/19 12:16 05:26 21:29 POC Glucose 96 149 H 97 05/10/19 16:21 POC Glucose 157 H Hospitalist ROS - Medication Medications: Active Medications Generic Name Dose Route Start Last Admin Trade Name Shayq PRN Reason Stop Dose Admin Aspirin 325 mg 05/10/19 09:00 05/11/19 08:08 Aspirin PO 325 mg DAILY SEAN Administration Carvedilol 3.125 mg 05/10/19 08:00 05/11/19 08:09 Coreg PO 3.125 mg BID-WM SEAN Administration Clopidogrel Bisulfate 75 mg 05/10/19 09:00 05/10/19 09:04 Plavix PO 75 mg DAILY SEAN Administration Enoxaparin Sodium 40 mg 05/10/19 09:00 05/11/19 08:20 Lovenox SC 40 mg 0900 SEAN Administration Famotidine 20 mg 05/10/19 09:00 05/10/19 20:21 Pepcid PO 20 mg BID SEAN Administration Furosemide 40 mg 05/10/19 09:00 05/11/19 08:09 Lasix PO 40 mg 0900,1400 SEAN Administration Vancomycin HCl 1.5 gm/ Device 300 mls @ 200 mls/hr 05/10/19 05:00 05/11/19 05 :45 IVPB 300 mls 0500,1700 SEAN Administration Isosorbide Mononitrate 30 mg 05/10/19 09:00 05/11/19 08:08 Imdur Er PO 30 mg DAILY SEAN Administration Levofloxacin 750 mg 05/10/19 06:00 05/11/19 05:45 Levaquin PO 750 mg 0600 SEAN Administration Levothyroxine Sodium 50 mcg 05/10/19 06:00 05/11/19 05:45 Synthroid PO 50 mcg 0600 SEAN Administration Lisinopril 40 mg 05/10/19 09:00 05/11/19 08:12 Zestril PO 40 mg DAILY SEAN Administration Metformin HCl 1,000 mg 05/10/19 08:00 05/11/19 08:08 Glucophage PO 1,000 mg BID-WM SEAN Administration Nifedipine 90 mg 05/10/19 09:00 05/11/19 08:06 Procardia Xl PO 90 mg DAILY SEAN Administration Ranolazine 500 mg 05/10/19 09:00 05/11/19 08:07 Ranexa PO 500 mg BID SEAN Administration Rosuvastatin Calcium 40 mg 05/10/19 09:00 05/11/19 08:07 Crestor PO 40 mg DAILY SEAN Administration - Exam Eye: PERRL Heart: RRR, no murmur, no gallops, no rubs, normal peripheral pulses Respiratory: CTAB, no wheezes, no rales, no ronchi, normal chest expansion, no tachypnea, normal percussion Gastrointestinal: soft, non-tender, non-distended, normal bowel sounds, no palpable masses, no hepatomegaly Extremities: no cyanosis, no edema (wound is dressed) Hosp A/P (1) Diabetic infection of left foot Code(s): E11.628 - TYPE 2 DIABETES MELLITUS WITH OTHER SKIN COMPLICATIONS; L08.9 - LOCAL INFECTION OF THE SKIN AND SUBCUTANEOUS TISSUE, UNSP Status: Acute (2) Coronary artery disease Code(s): I25.10 - ATHSCL HEART DISEASE OF [place] CORONARY ARTERY W/O ANG PCTRS Status: Chronic Qualifiers: Coronary Disease-Associated Artery/Lesion type: bypass graft (3) Diabetes mellitus Code(s): E11.9 - TYPE 2 DIABETES MELLITUS WITHOUT COMPLICATIONS Status: Chronic Qualifiers: Diabetes mellitus type: type 2 Diabetes mellitus complication status: with unspecified complications (4) Hypertension Code(s): I10 - ESSENTIAL (PRIMARY) HYPERTENSION Status: Chronic Qualifiers: Hypertension type: essential hypertension Qualified Code(s): I10 - Essential (primary) hypertension - Plan * Diabetic foot infection- 3rd toe on the left foot- MRI results noted- there is a question of osteomyelitis on the 3ed toe * Will consult ID to help with further recommendations * Continue Vancomycin and Levaquin for now * HTN- blood pressure is a bit elevated- will monitor * DM- blood glucose is stable
[2019-05-11 16:53] LABS: Vancomycin, Trough 15.9 ug/mL
--- NOTE | 2019-05-11 18:19 | CON ---
DATE OF CONSULTATION: 05/11/2019 REASON FOR CONSULT: Left foot inflammatory process, third toe. HISTORY OF PRESENT ILLNESS: A 73-year-old with history of type 2 diabetes mellitus and coronary artery disease, prior bypass graft surgery, who developed a callus at the end of the third left toe distal phalanx with inflammatory changes. He was admitted. Dr. Garcia evaluated the patient and felt there was a superficial process without penetration into the bone. However, the bone scan showed some areas of uptake concerning for osteomyelitis. Currently, the patient is feeling quite well. He denies headaches. No visual symptoms, sore throat, odynophagia, or dysphagia. No cough or sputum production. No chest pain. No abdominal pain or diarrhea. No genitourinary symptoms. No joint symptoms outside the involved area. No neurological symptoms. PAST MEDICAL HISTORY: Type 2 diabetes, neuropathy, coronary artery disease, bypass graft surgery, hypothyroidism, hyperlipidemia, hypertension, and KLAUS with CPAP. FAMILY HISTORY: Hypertension and coronary artery disease. SOCIAL HISTORY: Retired. Never smoker. [place], [place] 30 [place] this town. ALLERGIES: NONE. CURRENT MEDICATIONS: Include; 1. [place]. 2. Aspirin. 3. Dulcolax. 4. Coreg. 5. Plavix. 6. Dextrose. 7. Lovenox. 8. Pepcid. 9. Lasix. 10. Insulin. 11. Levaquin. 12. Vancomycin. PHYSICAL EXAMINATION: VITAL SIGNS: Temperature normal, BP 160/73, and pulse is 59. SKIN: Shows the left third toe with a thick callus at the tip. This has been removed by Dr. Garcia now. The third toe is swollen and erythematous. This has improved quite significantly since admission. The patient has a peripheral IV access and is voiding spontaneously in the toilet. No lymphadenopathy. HEENT: Noncontributory. NECK: Supple. LUNGS: Symmetric clear breath sounds. HEART: S1 and S2. Regular rate. No S3 or S4. ABDOMEN: Soft, not distended or tender. No ascites. No bladder distention. EXTREMITIES: No joint inflammatory activity. Pulses are excellent in dorsalis pedis with normal cap refill. Strength in upper and lower extremities is 5/5. NEUROLOGIC: Cognitive function appears to be intact. LABORATORY DATA: Sodium 138 and creatinine 1.04. Liver profile normal. CRP 1.7. Albumin 4.3. White cell count 9.0, hemoglobin 13, and platelets 154, normal differential. The imaging studies have been discussed. Bacterial culture from the tip of the toe with mixed nury yet to be fully identified. Blood culture, no growth thus far. ASSESSMENT AND PLAN: Type 2 diabetes, coronary artery disease, excellent vascular supply to lower extremities with inflammatory process left foot third toe due to callus formation at the tip, usual problem. Despite the findings in the bone scan, frequently those findings are nonspecific and I think we need more discriminatory test such as an MRI to determine if he does have osteo or not. If he does not, it would facilitate discharge planning since he would be able to go home on oral antimicrobial therapy. Otherwise, he would need peripherally inserted central catheter line placement and protracted IV antimicrobial therapy administration, so we are going to order an MRI and followup from there. Job ID: [id number] MTDD
[2019-05-12] MEDS: Vancomycin 1.5 GRAM/300 ML BAG 1.5 GM in Premix Bag 1 BAG IVPB SCH ×2 (05:06→16:42)
[2019-05-12] MEDS: Levothyroxine Sodium 50 MCG TAB PO SCH (05:07)
[2019-05-12] MEDS: Carvedilol 3.125 MG TAB PO SCH ×2 (08:21→16:43)
[2019-05-12] MEDS: Aspirin 325 MG TAB PO SCH (08:21)
[2019-05-12] MEDS: Lisinopril 20 MG TAB PO SCH (08:21)
[2019-05-12] MEDS: metFORMIN 500 MG TAB PO SCH ×3 (08:21→18:05)
[2019-05-12] MEDS: Rosuvastatin 20 MG TAB PO SCH (08:21)
[2019-05-12] MEDS: Enoxaparin Sodium 40 MG/0.4 ML SYRINGE SC SCH (08:22)
[2019-05-12] MEDS: NIFEdipine XL 90 MG TAB PO SCH (08:22)
[2019-05-12] MEDS: Famotidine 20 MG TAB PO SCH ×2 (08:22→20:22)
[2019-05-12] MEDS: Clopidogrel Bisulfate 75 MG TAB PO SCH (08:22)
[2019-05-12] MEDS: Furosemide 20 MG TAB PO SCH ×2 (08:22→14:38)
[2019-05-12] MEDS: Isosorbide Mononitrate (ER) 30 MG TAB PO SCH (08:24)
--- NOTE | 2019-05-12 12:32 | MRI ---
MRI LEFT FOREFOOT WITH AND WITHOUT IV CONTRAST: 05/12/2019 PROVIDED CLINICAL HISTORY: Left third toe pain and swelling. FINDINGS: There is diminished signal intensity on T1 weighted sequences and increased signal intensity on fluid sensitive sequences involving the third digit distal phalanx. There is diffuse thickening and signal alteration involving the surrounding subcutaneous adipose layer. There is no evidence for a focal fl uid collection. There is no regional joint effusion evident. Regional marrow and muscular signal appe ar otherwise unremarkable. The dorsal extensor and plantar flexor tendons appear intact. There is no significant tenosynovial fluid apparent. IMPRESSION: Distal third digit cellulitis with associated third digit distal phalanx osteomyelitis. No evidence f or abscess or infectious tenosynovitis. POS: OFF
--- NOTE | 2019-05-12 14:53 | PDOC.HOSPP ---
- Subjective Encounter Date: 05/12/19 Encounter Time: 14:51 Subjective: Mr. Mason was seen today in follow-up of osteomyelitis of the toe. No complaints. - Objective Vital Signs & Weight: Vital Signs (12 hours) Temp Pulse Resp BP Pulse Ox 05/12/19 08:22 56 L 05/12/19 08:00 98.3 F 68 18 183/82 H 98 05/12/19 04:00 98.9 F 56 L 16 145/67 H 98 Weight Admit Weight 235 lb 3 oz Weight 235 lb 3 oz I&O: 05/11/19 05/12/19 05/13/19 06:59 06:59 06:59 Intake Total 1000 1200 Balance 1000 1200 Result Diagrams: 05/10/19 03:57 05/10/19 03:57 Additional Labs: Accuchecks 05/12/19 05/12/19 05/11/19 11:18 05:13 20:16 POC Glucose 116 H 125 H 105 05/11/19 16:20 POC Glucose 146 H Hospitalist ROS - Medication Medications: Active Medications Generic Name Dose Route Start Last Admin Trade Name Shayq PRN Reason Stop Dose Admin Aspirin 325 mg 05/10/19 09:00 05/12/19 08:21 Aspirin PO 325 mg DAILY SEAN Administration Carvedilol 3.125 mg 05/10/19 08:00 05/12/19 08:21 Coreg PO 3.125 mg BID-WM SEAN Administration Clopidogrel Bisulfate 75 mg 05/10/19 09:00 05/12/19 08:22 Plavix PO 75 mg DAILY SEAN Administration Enoxaparin Sodium 40 mg 05/10/19 09:00 05/12/19 08:22 Lovenox SC 40 mg 0900 SEAN Administration Famotidine 20 mg 05/10/19 09:00 05/12/19 08:22 Pepcid PO 20 mg BID SEAN Administration Furosemide 40 mg 05/10/19 09:00 05/12/19 14:38 Lasix PO 40 mg 0900,1400 SEAN Administration Vancomycin HCl 1.5 gm/ Device 300 mls @ 200 mls/hr 05/10/19 05:00 05/12/19 05 :06 IVPB 300 mls 0500,1700 SEAN Administration Isosorbide Mononitrate 30 mg 05/10/19 09:00 05/12/19 08:24 Imdur Er PO 30 mg DAILY SEAN Administration Levofloxacin 750 mg 05/10/19 06:00 05/12/19 05:07 Levaquin PO 750 mg 0600 SEAN Administration Levothyroxine Sodium 50 mcg 05/10/19 06:00 05/12/19 05:07 Synthroid PO 50 mcg 0600 SEAN Administration Lisinopril 40 mg 05/10/19 09:00 05/12/19 08:21 Zestril PO 40 mg DAILY SEAN Administration Metformin HCl 1,000 mg 05/10/19 08:00 05/12/19 08:21 Glucophage PO 1,000 mg BID-WM SEAN Administration Nifedipine 90 mg 05/10/19 09:00 05/12/19 08:22 Procardia Xl PO 90 mg DAILY SEAN Administration Ranolazine 500 mg 05/10/19 09:00 05/12/19 08:22 Ranexa PO 500 mg BID SEAN Administration Rosuvastatin Calcium 40 mg 05/10/19 09:00 05/12/19 08:21 Crestor PO 40 mg DAILY SEAN Administration - Exam Eye: PERRL Heart: RRR, no murmur, no gallops, no rubs, normal peripheral pulses Respiratory: CTAB, no wheezes, no rales, no ronchi, normal chest expansion, no tachypnea Gastrointestinal: soft, non-tender, non-distended, normal bowel sounds, no palpable masses, no hepatomegaly, no splenomegaly Extremities: no cyanosis, no edema Hosp A/P (1) Diabetic infection of left foot Code(s): E11.628 - TYPE 2 DIABETES MELLITUS WITH OTHER SKIN COMPLICATIONS; L08.9 - LOCAL INFECTION OF THE SKIN AND SUBCUTANEOUS TISSUE, UNSP Status: Acute (2) Coronary artery disease Code(s): I25.10 - ATHSCL HEART DISEASE OF [place] CORONARY ARTERY W/O ANG PCTRS Status: Chronic Qualifiers: Coronary Disease-Associated Artery/Lesion type: bypass graft (3) Diabetes mellitus Code(s): E11.9 - TYPE 2 DIABETES MELLITUS WITHOUT COMPLICATIONS Status: Chronic Qualifiers: Diabetes mellitus type: type 2 Diabetes mellitus complication status: with unspecified complications (4) Hypertension Code(s): I10 - ESSENTIAL (PRIMARY) HYPERTENSION Status: Chronic Qualifiers: Hypertension type: essential hypertension Qualified Code(s): I10 - Essential (primary) hypertension - Plan * Diabetic foot infection- 3rd toe on the left foot- MRI demonstrated evidence of Osteomyelitis * ID recommendations noted * PICC line to be placed today * Discharge home with IV Rocephin and Vancomycin
--- NOTE | 2019-05-12 16:24 | SPC ---
SPC CVP LINE PICC INITIAL >5: 05/12/2019 12:00 AM PROCEDURE: Peripherally placed 45 cm single lumen PICC line. PICC Line Placement: The left arm was prepped and draped in sterile fashion. One percent lidocaine was used for local anesthetic. Under fluoroscopic and ultrasound guidance, the left brachial vein was patent and accessed with a kya ropuncture needle. A guide wire was then advanced into the left brachial vein. A vascular sheath was then advanced over a guide wire, and a single lumen PICC line was trimmed. The PICC line was then advanced into the central venous system. A final placement film demonstrates the tip of the catheter terminated in the caval-atrial junction. After confirmation of the catheter position, the catheter was sutured in place at the skin entry site . There was no immediate complication. Total fluoroscopic time 0.7 minutes. Total exposure 6886 mgray/sq cm IMPRESSION: Peripheral placement of a single lumen power PICC line into the left brachial vein using fluoroscopic and ultrasound guidance.
[2019-05-13 04:35] LABS: Vancomycin, Trough 17.9 ug/mL
[2019-05-13] MEDS: Vancomycin 1.5 GRAM/300 ML BAG 1.5 GM in Premix Bag 1 BAG IVPB SCH (05:12)
[2019-05-13] MEDS: Levothyroxine Sodium 50 MCG TAB PO SCH (05:13)
[2019-05-13] MEDS: Lisinopril 20 MG TAB PO SCH (08:50)
[2019-05-13] MEDS: NIFEdipine XL 90 MG TAB PO SCH (09:08)
[2019-05-13] MEDS: Furosemide 20 MG TAB PO SCH (09:08)
[2019-05-13] MEDS: Isosorbide Mononitrate (ER) 30 MG TAB PO SCH (09:08)
[2019-05-13] MEDS: Carvedilol 3.125 MG TAB PO SCH (09:09)
[2019-05-13] MEDS: Rosuvastatin 20 MG TAB PO SCH (09:09)
[2019-05-13] MEDS: metFORMIN 500 MG TAB PO SCH (09:09)
[2019-05-13] MEDS: Clopidogrel Bisulfate 75 MG TAB PO SCH (09:09)
[2019-05-13] MEDS: Aspirin 325 MG TAB PO SCH (09:09)
[2019-05-13] MEDS: Enoxaparin Sodium 40 MG/0.4 ML SYRINGE SC SCH (09:10)
[2019-05-13] MEDS: Famotidine 20 MG TAB PO SCH (09:17)
[2019-05-13] MEDS ORDERED: cefTRIAXone\\ROCEPHIN 2 GM in Sodium Chloride 0.9% 100 ML IVPB SCH (11:30)
[2019-05-13 15:23] VITALS: BP 136/63; TEMP 98.3
--- NOTE | 2019-05-14 02:04 | DIS ---
DATE OF ADMISSION: 05/10/2019 DATE OF DISCHARGE: 05/13/2019 PRIMARY CARE PHYSICIAN: Loco Garcia MD DISCHARGE DISPOSITION: Home. DISCHARGE DIAGNOSES: 1. Osteomyelitis of the 3rd toe on the left foot. 2. Diabetes mellitus type 2. 3. Hypertension. 4. Hyperlipidemia. 5. Coronary artery disease. 6. Hypothyroidism. DISCHARGE MEDICATIONS: The patient will be discharged on; 1. Rocephin 2 g IV daily until June 21. 2. Vancomycin IV until June 21. Continue; 1. Metformin 1000 mg p.o. twice daily. 2. Lisinopril 40 mg daily. 3. Vitamin B12 1000 mcg p.o. daily. 4. Ambien 10 mg at bedtime. 5. Vitamin A, E, zinc and copper daily. 6. Co Q10 30 mg daily. 7. Turmeric 400 mg daily. 8. Crestor 40 mg daily. 9. Ranexa 500 mg p.o. twice daily. 10. Nifedipine 90 mg daily. 11. Levothyroxine 50 mcg daily. 12. Lantus insulin 40 units subcu daily. 13. Plavix 75 mg p.o. daily. 14. Carvedilol 3.125 mg p.o. daily. 15. Aspirin 81 mg daily. PROCEDURES PERFORMED DURING HOSPITAL STAY: The patient had a lower extremity MRI, in which the 3rd digit, there was evidence of osteomyelitis, but no evidence of abscess or infectious tenosynovitis. CODE STATUS: Full code. ALLERGIES: NO KNOWN DRUG ALLERGIES. HOSPITAL COURSE: Mr. Mason is a pleasant 73-year-old gentleman, who noticed a red and painful swollen area on his toe. He is diabetic, so he was concerned. He came to the ER and was admitted for diabetic foot infection. He was started on empiric IV antibiotics and was evaluated by General Surgery. The area was debrided. An MRI was obtained, which demonstrated osteomyelitis of the 3rd toe. ID was consulted and Dr. Mcgregor recommended IV vancomycin and Rocephin until June 21. Once the IV antibiotics were arranged, the patient was able to be discharged home and have close outpatient followup with his primary care physician, Dr. Loco Garcia in 1 week and then also with Dr. Mcgregor as recommended. Job ID: [id number]
--- NOTE | 2019-05-16 02:27 | PQF ---
RAFAEL JOHNS RICHARD D MD [id number] CLINICAL DOCUMENTATION CLARIFICATION FORM: POST DISCHARGE Addendum to original discharge summary date: ____ Late entry note date: __ DATE: 05/16/19 ATTN: Loco Rodriguez Please exercise your independent, professional judgment in responding to the clarification form. Clinical indicators are provided on the bottom of this form for your review Please check appropriate box(s): Excisional Debridement: Depth / layer: (deepest layer of debridement): [ ] Skin [ ] SubQ Tissue [ ] Fascia [ ] Muscle [ ] Tendon [ ] Bone [ ] Other procedure diagnosis [ ] Unable to determine For continuity of documentation, please document condition throughout progress notes and discharge summary. Thank You. CLINICAL INDICATORS - SIGNS / SYMPTOMS / LABS Operative note p1 05/12 Dr Garcia With the patient at bedside in his room, his left third toe was cellulitic and edematous There was callus at the tip. Operative note p1 05/12 Dr Garcia This was debrided sharply after an alcohol prep, unroofing the blister and unroofing the intact skin other except for a 4 mm area with granulation tissue. RISK FACTORS Operative note p1 05/12 Diabetic infection left third toe With callus on the tip. Operative note p1 05/12 Sharp excisional resectional debridement, 10 blade scalpel resectional excisional skin and callus leaving a 4 mm excoriated wound without deep sinus tract. TREATMENTS: Operative note p1 05/12 Excisional Debridement MAR 05/10 - IV Antibiotics (This form is maintained as a part of the permanent medical record) 2014 [employer]. All Rights Reserved Nicole [email or web address] [not provided] MTDD
== END 2019-05-13 15:23 | disposition home health service (06) | DRG 638 ==
LOC: ERS 00:22 → ONC 03:29
PROVIDERS: ADMIT Internal Medicine; ATTEND Internal Medicine
PROC: 0HBNXZZ Excision of Left Foot Skin, External Approach (ICD-10-PCS; principal; 2019-05-11)
PROC: 3E0234Z Introduction of Serum, Toxoid and Vaccine into Muscle, Percutaneous Approach (ICD-10-PCS; 2019-05-11)
PROC: 3E02340 Introduction of Influenza Vaccine into Muscle, Percutaneous Approach (ICD-10-PCS; 2019-05-11)
PROC: 02HV33Z Insertion of Infusion Device into Superior Vena Cava, Percutaneous Approach (ICD-10-PCS; 2019-05-12)
PROC: B548ZZA Ultrasonography of Superior Vena Cava, Guidance (ICD-10-PCS; 2019-05-12)
DX: E11.69 Type 2 diabetes mellitus with other specified complication (principal); M86.8X7 Other osteomyelitis, ankle and foot; L03.116 Cellulitis of left lower limb; I10 Essential (primary) hypertension; E78.5 Hyperlipidemia, unspecified; I25.10 Atherosclerotic heart disease of native coronary artery without angina pectoris; E03.9 Hypothyroidism, unspecified; G47.33 Obstructive sleep apnea (adult) (pediatric); Z23 Encounter for immunization; Z79.899 Other long term (current) drug therapy; Z79.84 Long term (current) use of oral hypoglycemic drugs; Z95.1 Presence of aortocoronary bypass graft
CPT/HCPCS: 36415; 36416; 36569; 78315; 80053; 80202; 82565; 83735; 84550; 85025; 85652; 86140; 87040; 87070; 87205; 90471; 90662; 90670; 96365; A9503; C1751; G0008; G0009; J0696; J1644; J1650; J3490

== ENCOUNTER 2024-02-17 19:37 | Emergency (ER) | payer MEDICARE, BC ==
[2024-02-17 20:26] LABS: #Basophils 0.03 10x3/uL (0.0-0.2); %Basophils 0.4 % (0.0-1.0); %Eosinophils 1.7 % (0.0-10.0); %Lymphocytes 15.5 % (21.0-51.0); %Monocytes 8.1 % (0.0-10.0); %Neutrophils 73.9 % (42.0-75.0); Hematocrit 43.1 % (42.0-52.0); Hemoglobin 14.6 g/dL (14.0-18.0); Mean Corpuscular HGB CONC 33.9 g/dL (32.0-36.0); Mean Corpuscular Hemoglobin 31.1 pg (27.0-31.0); Mean Corpuscular Volume 91.7 fL (78.0-98.0); Mean Platelet Volume 11.4 fL (7.4-10.4); Platelet Count 179 10x3/uL (130-400)
[2024-02-17 20:52] LABS: ALT (SGPT) 31 U/L (8-55); AST (SGOT) 19 U/L (5-34); Albumin 3.6 g/dL (3.4-4.8); Alkaline Phosphatase 74 U/L (40-110); Anion Gap 12 mmol/L (10-20); BUN (Urea Nitrogen) 24 mg/dL (8.4-25.7); Bilirubin, Total 0.7 mg/dL (0.2-1.2); Calc. Creatinine Clearance 0 mL/min (70-130); Calcium 9.3 mg/dL (7.8-10.44); Carbon Dioxide 27 mmol/L (23-31); Chloride 104 mmol/L (98-107); Estimated GFR 54; Globulin 3.4 g/dL (2.4-3.5); Glucose 229 mg/dL (83-110); Potassium 4.8 mmol/L (3.5-5.1); Sodium 138 mmol/L (136-145)
== END 2024-02-17 22:08 | disposition home or self-care (01) ==
LOC: ERS 19:37
DX: L03.032 Cellulitis of left toe (principal); L03.031 Cellulitis of right toe; I25.10 Atherosclerotic heart disease of native coronary artery without angina pectoris; E11.9 Type 2 diabetes mellitus without complications; I10 Essential (primary) hypertension; E03.9 Hypothyroidism, unspecified; E78.00 Pure hypercholesterolemia, unspecified; Z95.5 Presence of coronary angioplasty implant and graft; Z79.82 Long term (current) use of aspirin; Z79.899 Other long term (current) drug therapy; Z79.4 Long term (current) use of insulin
CPT/HCPCS: 36415; 80053; 85025; 86141; 99283